=== PATIENT | male | born 1985 | race Two or more races ===

== ENCOUNTER 2023-08-29 09:20 | Emergency (ER) | payer MEDICAID ==
[~2023-08-29] VITALS: Ht 172.7 cm; Wt 130.2 kg
[2023-08-29 09:25] VITALS: BP 130/75; TEMP 98.2; O2SAT 98
[2023-08-29] MEDS ORDERED: IBUP-1953 PO (09:42)
[2023-08-29] MEDS ORDERED: CEPH500T PO (09:42)
[2023-08-29] MEDS ORDERED: CEPH-570 PO (10:29)
== END 2023-08-29 10:35 | disposition home or self-care (01) ==
LOC: ER 09:27
DX: L03.221 Cellulitis of neck (principal); Z79.899 Other long term (current) drug therapy